=== PATIENT | male | born 1950 | race Caucasian/White ===

== ENCOUNTER 2021-12-31 15:08 | Inpatient (IN) | payer MEDICARE ==
[2021-12-31 16:13] LABS: Bilirubin 1+ (Negative); Blood, Urine Negative (Negative); Clarity Clear (Clear); Glucose, Urine (Dipstick) Normal (Negative); Ketone, Urine Negative (Negative); Leukocyte Negative (Negative); Nitrite Negative (Negative); Protein, Urine (Dipstick) 30 mg/dl (Neg-Trace); Specific Gravity, Urine 1.025 (1.005-1.030)
[2021-12-31 16:16] LABS: #Eosinphils 0.1 10x3/uL (0.0-0.5); #Monocytes 0.7 10x3/uL (0.0-1.1); #Neutrophils 4.7 10x3/uL (1.5-8.4); %Basophils 0.5 % (0.0-2.0); %Eosinophils 1.8 % (0.0-6.0); %Lymphocytes 15.1 % (18.0-47.0); %Monocytes 11.1 % (0.0-10.0); %Neutrophils 71.2 % (40.0-75.0); Hemoglobin 15.8 g/dL (13.5-17.5); Mean Corpuscular Hemoglobin 32.6 pg (27.0-33.0); Mean Platelet Volume 11.4 fl (7.4-10.4); Platelet Count 146 10x3/uL (150-450); RBC Distribution Width 15.2 % (11.5-14.5); Red Blood Cell (RBC) Count 4.84 10x6/uL (4.32-5.72); White Blood Cell (WBC) Count 6.6 10x3/uL (3.5-10.5)
[2021-12-31 16:28] LABS: RBC/HPF 0-3 HPF (0-3); Squamous Epithelial 0-3 HPF (0-3)
[2021-12-31 16:29] LABS: SARS-CoV-2 NAA Rapid Test Not Detected (NotDetected)
[2021-12-31 16:29] LABS: Bacteria/HPF 2+ HPF (None Seen); Mucous/LPF 2+ LPF (<2+); WBC/HPF 0-3 HPF (0-3)
[2021-12-31 16:37] LABS: ALT (SGPT) 13 U/L (8-55); AST (SGOT) 18 U/L (5-34); Albumin 3.9 g/dL (3.4-4.8); Alkaline Phosphatase 51 U/L (40-110); Anion Gap 16 mmol/L (10-20); BUN (Urea Nitrogen) 17 mg/dL (8.4-25.7); Bilirubin, Total 1.9 mg/dL (0.2-1.2); Calc. Creatinine Clearance 0 mL/min (70-130); Carbon Dioxide 26 mmol/L (23-31); Chloride 106 mmol/L (98-107); Estimated GFR 74; Globulin 2.1 g/dL (2.4-3.5); Glucose 105 mg/dL (80-115); Lipase 8 U/L (8-78); Potassium 4.6 mmol/L (3.5-5.1); Sodium 143 mmol/L (136-145)
[2021-12-31 17:24] LABS: CKMB 2.6 ng/mL (0-6.6)
[2021-12-31] MEDS ORDERED: Aspirin Chewable 81 MG TAB ONE (17:54)
[2021-12-31] MEDS ORDERED: Furosemide 40 MG/4 ML VIAL ONE (17:54)
[2021-12-31 20:09] VITALS: BMI 37.6
[2021-12-31 20:43] LABS: Troponin I 0.039 ng/mL (< 0.028)
[2021-12-31] MEDS ORDERED: Acetaminophen 325 MG TAB PO PRN (21:41)
[2021-12-31] MEDS ORDERED: Ondansetron PF 4 MG/2 ML Vial IVP PRN (21:41)
[2021-12-31] MEDS ORDERED: Ondansetron ODT 4 MG TAB PO PRN (21:41)
[2021-12-31] MEDS: Nicotine 14 MG PATCH TD SCH (22:12)
[2021-12-31 22:43] LABS: Troponin I 0.039 ng/mL (< 0.028)
[2022-01-01 05:59] LABS: #Eosinphils 0.2 10x3/uL (0.0-0.5); #Monocytes 0.8 10x3/uL (0.0-1.1); %Basophils 0.5 % (0.0-2.0); %Eosinophils 2.7 % (0.0-6.0); %Lymphocytes 21.7 % (18.0-47.0); %Monocytes 12.4 % (0.0-10.0); %Neutrophils 62.5 % (40.0-75.0); Hemoglobin 15.9 g/dL (13.5-17.5); Mean Corpuscular HGB CONC 32.7 g/dL (32.0-36.0); Mean Corpuscular Hemoglobin 31.9 pg (27.0-33.0); Mean Corpuscular Volume 97.4 fl (81.2-95.1); Mean Platelet Volume 11.3 fl (7.4-10.4); Platelet Count 146 10x3/uL (150-450); RBC Distribution Width 15.5 % (11.5-14.5); Red Blood Cell (RBC) Count 4.99 10x6/uL (4.32-5.72); White Blood Cell (WBC) Count 6.4 10x3/uL (3.5-10.5)
[2022-01-01 06:08] LABS: Anion Gap 17 mmol/L (10-20); BUN (Urea Nitrogen) 14 mg/dL (8.4-25.7); Calc. Creatinine Clearance 119 mL/min (70-130); Calcium 8.9 mg/dL (7.8-10.44); Carbon Dioxide 26 mmol/L (23-31); Chloride 105 mmol/L (98-107); Estimated GFR 84; Glucose 78 mg/dL (80-115); Potassium 4.3 mmol/L (3.5-5.1); Sodium 144 mmol/L (136-145)
[2022-01-01] MEDS ORDERED: Non-Formulary Medication 1 EACH (Evolocumab [Repatha Syringe] 140 MG/ML Syringe) SQ SCH (07:30)
[2022-01-01] MEDS ORDERED: Albuterol Sulfate 2.5 mg/3 ml Neb NEB PRN (07:50)
[2022-01-01] MEDS ORDERED: Aspirin 325 mg Enteric Coated Tablet PO SCH (08:00)
[2022-01-01 08:36] LABS: ALT (SGPT) 14 U/L (8-55); AST (SGOT) 19 U/L (5-34); Albumin 3.7 g/dL (3.4-4.8); Alkaline Phosphatase 48 U/L (40-110); Bilirubin, Direct 1.2 mg/dL (0.1-0.3); Bilirubin, Total 2.2 mg/dL (0.2-1.2); Cardiac Risk 2.6 (Less than 4.5); Cholesterol 87 mg/dl (< 200 Desired); HDL Cholesterol 34 mg/dL (>60 Neg Risk); LDL Cholesterol, Calculated 40 mg/dL; Protein, Total 5.9 g/dL (5.8-8.1); Triglycerides 64 mg/dL (Less than 150)
[2022-01-01] MEDS: Carvedilol 12.5 MG TAB PO SCH ×2 (09:20→20:47)
[2022-01-01] MEDS: Apixaban 5 MG TAB PO SCH ×2 (09:20→20:47)
[2022-01-01] MEDS: Pantoprazole 40 MG VIAL IVP SCH (09:21)
[2022-01-01] MEDS: Furosemide 40 MG/4 ML VIAL SLOW IVP SCH (09:28)
[2022-01-01] MEDS: cefTRIAXone\\ROCEPHIN 1 GM in Sodium Chloride 0.9% 100 ML IVPB SCH (09:28)
[2022-01-01] MEDS: Sacubitril 49 MG/Valsartan 51 MG TABLET PO SCH ×2 (09:29→20:47)
[2022-01-01] MEDS: Mometasone/Formoterol 200/5 60 PUFF INH SCH (18:41)
[2022-01-01] MEDS: Nicotine 14 MG PATCH TD SCH (20:47)
[2022-01-02] MEDS: Mometasone/Formoterol 200/5 60 PUFF INH SCH ×2 (07:11→19:15)
[2022-01-02] MEDS: cefTRIAXone\\ROCEPHIN 1 GM in Sodium Chloride 0.9% 100 ML IVPB SCH (08:24)
[2022-01-02] MEDS: Furosemide 40 MG/4 ML VIAL SLOW IVP SCH (10:00)
[2022-01-02] MEDS: Pantoprazole 40 MG VIAL IVP SCH (10:00)
[2022-01-02] MEDS: Sacubitril 49 MG/Valsartan 51 MG TABLET PO SCH ×2 (10:00→21:04)
[2022-01-02] MEDS: Apixaban 5 MG TAB PO SCH ×2 (10:01→21:01)
[2022-01-02] MEDS: Aspirin 81 mg Enteric Coated Tablet PO SCH ×2 (10:01→10:08)
[2022-01-02] MEDS: Carvedilol 12.5 MG TAB PO SCH ×2 (10:01→21:03)
[2022-01-02] MEDS: Nicotine 14 MG PATCH TD SCH (21:47)
[2022-01-03 06:25] LABS: Anion Gap 15 mmol/L (10-20); BUN (Urea Nitrogen) 18 mg/dL (8.4-25.7); Calc. Creatinine Clearance 136 mL/min (70-130); Calcium 8.5 mg/dL (7.8-10.44); Carbon Dioxide 28 mmol/L (23-31); Chloride 104 mmol/L (98-107); Estimated GFR 93; Glucose 86 mg/dL (80-115); Potassium 3.7 mmol/L (3.5-5.1); Sodium 143 mmol/L (136-145)
[2022-01-03] MEDS: Mometasone/Formoterol 200/5 60 PUFF INH SCH (07:53)
[2022-01-03] MEDS: Furosemide 40 MG/4 ML VIAL SLOW IVP SCH (11:06)
[2022-01-03] MEDS: Sacubitril 49 MG/Valsartan 51 MG TABLET PO SCH (11:07)
[2022-01-03] MEDS: Apixaban 5 MG TAB PO SCH (11:07)
[2022-01-03] MEDS: Aspirin 81 mg Enteric Coated Tablet PO SCH ×2 (11:07→11:10)
[2022-01-03] MEDS: Carvedilol 12.5 MG TAB PO SCH (11:08)
[2022-01-03 23:37] VITALS: BP 97/57; TEMP 97.4
== END 2022-01-03 14:16 | disposition home or self-care (01) | DRG 291 ==
LOC: CSHERS 15:08 → CSHTELE 19:57 → OBSVTOIN 01-02 17:17
PROVIDERS: ADMIT Family Medicine; ATTEND Internal Medicine
DX: I11.0 Hypertensive heart disease with heart failure (principal); I50.23 Acute on chronic systolic (congestive) heart failure; R10.13 Epigastric pain; I42.8 Other cardiomyopathies; Z20.822 Contact with and (suspected) exposure to COVID-19; F17.210 Nicotine dependence, cigarettes, uncomplicated; Z66 Do not resuscitate; K21.9 Gastro-esophageal reflux disease without esophagitis; I25.10 Atherosclerotic heart disease of native coronary artery without angina pectoris; E78.00 Pure hypercholesterolemia, unspecified; J44.9 Chronic obstructive pulmonary disease, unspecified; N52.9 Male erectile dysfunction, unspecified; I48.0 Paroxysmal atrial fibrillation; F41.9 Anxiety disorder, unspecified; Z95.810 Presence of automatic (implantable) cardiac defibrillator; Z79.82 Long term (current) use of aspirin; Z79.899 Other long term (current) drug therapy; Z88.8 Allergy status to other drugs, medicaments and biological substances; Z82.49 Family history of ischemic heart disease and other diseases of the circulatory system; Z79.01 Long term (current) use of anticoagulants
CPT/HCPCS: 36415; 71045; 76705; 80048; 80053; 80061; 80076; 81003; 81015; 82247; 82553; 83690; 83880; 84484; 85025; 87086; 93005; 94760; 96374; 96375; 96376; C9113; G0378; J0696; J1940; J3490

== ENCOUNTER 2022-06-16 15:18 | Emergency (ER) | payer MEDICARE ==
[2022-06-16 16:36] LABS: #Eosinphils 0.1 10x3/uL (0.0-0.5); #Monocytes 0.7 10x3/uL (0.0-1.1); #Neutrophils 4.6 10x3/uL (1.5-8.4); %Basophils 0.4 % (0.0-2.0); %Eosinophils 1.5 % (0.0-6.0); %Lymphocytes 21.6 % (18.0-47.0); %Monocytes 9.8 % (0.0-10.0); %Neutrophils 66.6 % (40.0-75.0); Hemoglobin 16.4 g/dL (13.5-17.5); Mean Corpuscular HGB CONC 33.5 g/dL (32.0-36.0); Mean Corpuscular Hemoglobin 33.3 pg (27.0-33.0); Mean Corpuscular Volume 99.4 fl (81.2-95.1); Mean Platelet Volume 11.8 fl (7.4-10.4); Platelet Count 127 10x3/uL (150-450); RBC Distribution Width 14.3 % (11.5-14.5); Red Blood Cell (RBC) Count 4.93 10x6/uL (4.32-5.72); White Blood Cell (WBC) Count 6.8 10x3/uL (3.5-10.5)
[2022-06-16 16:47] LABS: ALT (SGPT) 26 U/L (8-55); AST (SGOT) 32 U/L (5-34); Alkaline Phosphatase 52 U/L (40-110); Anion Gap 14 mmol/L (10-20); BUN (Urea Nitrogen) 20 mg/dL (8.4-25.7); Bilirubin, Total 0.8 mg/dL (0.2-1.2); Calc. Creatinine Clearance 0 mL/min (70-130); Calcium 8.9 mg/dL (7.8-10.44); Carbon Dioxide 27 mmol/L (23-31); Chloride 104 mmol/L (98-107); Estimated GFR 95; Globulin 2.2 g/dL (2.4-3.5); Glucose 92 mg/dL (83-110); Potassium 4.7 mmol/L (3.5-5.1); Protein, Total 6.2 g/dL (5.8-8.1); Sodium 140 mmol/L (136-145)
[2022-06-16 17:05] LABS: SARS-CoV-2 NAA Rapid Test Not Detected (NotDetected)
[2022-06-16 17:54] LABS: CKMB 1.7 ng/mL (0-6.6)
== END 2022-06-16 17:48 | disposition home or self-care (01) ==
LOC: CSHERS 15:18
DX: J06.9 Acute upper respiratory infection, unspecified (principal); R06.01 Orthopnea; K21.9 Gastro-esophageal reflux disease without esophagitis; E78.00 Pure hypercholesterolemia, unspecified; I10 Essential (primary) hypertension; F17.210 Nicotine dependence, cigarettes, uncomplicated; Z20.822 Contact with and (suspected) exposure to COVID-19
CPT/HCPCS: 0240U; 71045; 80053; 82553; 83880; 84484; 85025; 93005; 94760; 99284

== ENCOUNTER 2022-10-16 14:42 | Emergency (ER) | payer MEDICARE ==
[2022-10-16 15:49] LABS: #Eosinphils 0.1 10x3/uL (0.0-0.5); #Monocytes 0.6 10x3/uL (0.0-1.1); %Basophils 0.4 % (0.0-2.0); %Eosinophils 1.7 % (0.0-6.0); %Lymphocytes 18.1 % (18.0-47.0); %Neutrophils 70.7 % (40.0-75.0); Hemoglobin 15.7 g/dL (13.5-17.5); Platelet Count 165 10x3/uL (150-450); RBC Distribution Width 14.3 % (11.5-14.5); Red Blood Cell (RBC) Count 4.76 10x6/uL (4.32-5.72); White Blood Cell (WBC) Count 7.1 10x3/uL (3.5-10.5)
[2022-10-16 16:05] LABS: ALT (SGPT) 28 U/L (8-55); AST (SGOT) 25 U/L (5-34); Albumin 3.7 g/dL (3.4-4.8); Alkaline Phosphatase 46 U/L (40-110); Anion Gap 10 mmol/L (10-20); BUN (Urea Nitrogen) 18 mg/dL (8.4-25.7); Bilirubin, Total 0.8 mg/dL (0.2-1.2); Calc. Creatinine Clearance 0 mL/min (70-130); Carbon Dioxide 26 mmol/L (23-31); Chloride 107 mmol/L (98-107); Estimated GFR 96; Globulin 2.2 g/dL (2.4-3.5); Glucose 98 mg/dL (83-110); Potassium 4.4 mmol/L (3.5-5.1); Protein, Total 5.9 g/dL (5.8-8.1); Sodium 139 mmol/L (136-145)
[2022-10-16 17:48] LABS: SARS-CoV-2 NAA Rapid Test Not Detected (NotDetected)
== END 2022-10-16 18:03 | disposition home or self-care (01) ==
LOC: CSHERS 14:42
DX: R05.9 Cough, unspecified (principal); K21.9 Gastro-esophageal reflux disease without esophagitis; I10 Essential (primary) hypertension; F17.290 Nicotine dependence, other tobacco product, uncomplicated; Z20.822 Contact with and (suspected) exposure to COVID-19
CPT/HCPCS: 0240U; 71045; 80053; 83735; 83880; 85025; 85379; 93005; 36415

== ENCOUNTER 2023-01-25 12:44 | Emergency (ER) | payer MEDICARE ==
[2023-01-25 14:03] LABS: #Monocytes 1.2 10x3/uL (0.0-1.1); #Neutrophils 8.4 10x3/uL (1.5-8.4); %Basophils 0.2 % (0.0-2.0); %Eosinophils 0.3 % (0.0-6.0); %Lymphocytes 10.4 % (18.0-47.0); %Monocytes 11.3 % (0.0-10.0); %Neutrophils 77.5 % (40.0-75.0); Hematocrit 48.8 % (38.8-50.0); Hemoglobin 16.4 g/dL (13.5-17.5); Mean Corpuscular HGB CONC 33.6 g/dL (32.0-36.0); Mean Corpuscular Volume 98.2 fl (81.2-95.1); Mean Platelet Volume 11.8 fl (7.4-10.4); Platelet Count 140 10x3/uL (150-450); RBC Distribution Width 14.6 % (11.5-14.5); Red Blood Cell (RBC) Count 4.97 10x6/uL (4.32-5.72); White Blood Cell (WBC) Count 10.9 10x3/uL (3.5-10.5)
[2023-01-25 14:17] LABS: ALT (SGPT) 14 U/L (8-55); AST (SGOT) 23 U/L (5-34); Albumin 3.8 g/dL (3.4-4.8); Alkaline Phosphatase 52 U/L (40-110); Anion Gap 17 mmol/L (10-20); BUN (Urea Nitrogen) 16 mg/dL (8.4-25.7); Calc. Creatinine Clearance 0 mL/min (70-130); Calcium 8.9 mg/dL (7.8-10.44); Carbon Dioxide 21 mmol/L (23-31); Chloride 104 mmol/L (98-107); Estimated GFR 95; Globulin 2.4 g/dL (2.4-3.5); Glucose 105 mg/dL (83-110); Lipase 28 U/L (8-78); Protein, Total 6.2 g/dL (5.8-8.1); Sodium 138 mmol/L (136-145)
[2023-01-25 14:18] LABS: Troponin I Less than 0.010 ng/mL (< 0.028)
== END 2023-01-25 17:19 | disposition home or self-care (01) ==
LOC: CSHERS 12:44
DX: K57.31 Diverticulosis of large intestine without perforation or abscess with bleeding (principal); K59.00 Constipation, unspecified; I10 Essential (primary) hypertension; F17.210 Nicotine dependence, cigarettes, uncomplicated; F17.290 Nicotine dependence, other tobacco product, uncomplicated
CPT/HCPCS: 36415; 71045; 74177; 80053; 83605; 83690; 84484; 85025; 93005